=== PATIENT | female | born 1975 | race African-American/Black ===

== ENCOUNTER 2017-08-04 23:59 | Emergency (ER) | payer OTHER ==
[~2017-08-04] VITALS: Ht 149.9 cm; Wt 52.1 kg
[~2017-08-04 23:59] MED LIST: ALBUTEROL SULF8.5 GM IH; ASPIR-LOW81 MG PO; AZITHROMYCIN500 M1 PO; BENADRYL50 MG PO; BENZONATATE200 MG PO; BUTALB-APAP-CA1 EACH PO; CEFDINIR300 MG PO; CEFTIN500 MG PO; CELEXA; CELEXA20 MG PO; CIPRO500 MG PO; CITALOPRAM HBR20 MG PO; CYANOCOBALAM1000 MCG PO; DILAUDID2 MG PO; DOXYCYCLINE HY100 MG PO; FAMOTIDINE20 MG PO; FERROUS SULFAT325 MG PO; FETZIMA40 MG PO; FLEXERIL5 MG PO; FOLIC ACID1 MG PO; HYDROCODON-ACE1 EAC7 PO; IBUPROFEN800 MG PO; LEVAQUIN750 MG PO; MECLIZINE HCL25 MG PO; MEDROL DOSEPAK4 MG PO; MELOXICAM7.5 MG PO; METRONIDAZOLE500 MG PO; MOTRIN400 MG PO; MOTRIN800 MG PO; NAPROSYN500 MG PO; PRAVASTATIN SOD80 MG PO; PREDNISONE10 MG PO; PREDNISONE20 MG PO; PROAIR HFA8.5 GM IH; PROMETHAZINE HC25 M1 PO; ROBITUSSIN AC,T10 ML PO; SYMBICORT60 INHALAT IH; ULTRAM50 MG PO; WOMEN'S DAILY1 EAC1 PO; ZOFRAN4 MG PO; [UNRECOGNIZED DRUG - OTHER]; [UNRECOGNIZED DRUG - REMARK] PO
[2017-08-05] MEDS ORDERED: HYCODAN SYRUP480 ML PO (02:35)
[2017-08-05] MEDS ORDERED: VENTOLIN HFA18 GM IH (02:35)
[2017-08-05] MEDS ORDERED: PREDNISONE20 MG PO (02:35)
[2017-08-05 02:50] VITALS: BP 139/96
== END 2017-08-05 03:03 | disposition home or self-care (01) ==
LOC: EME 23:59
DX: J20.9 Acute bronchitis, unspecified (principal); J45.909 Unspecified asthma, uncomplicated; F17.200 Nicotine dependence, unspecified, uncomplicated; I10 Essential (primary) hypertension; F32.9 Major depressive disorder, single episode, unspecified; F41.9 Anxiety disorder, unspecified; Z86.73 Personal history of transient ischemic attack (TIA), and cerebral infarction without residual deficits
CPT/HCPCS: 71046; 94640; 99281; 99284; J7512

== ENCOUNTER 2018-03-11 23:30 | Inpatient (IN) | payer OTHER ==
[~2018-03-11] VITALS: Ht 149.9 cm; Wt 46.8 kg
[~2018-03-11 23:30] MED LIST changes: +HYCODAN SYRUP480 ML PO; +VENTOLIN HFA18 GM IH
[2018-03-12 01:50] LABS: ALBUMIN 4.3 g/dL (3.2-4.8); CHLORIDE 104 mEq/L (99-109); POTASSIUM 3.2 mEq/L (3.7-5.4); SODIUM 140 mEq/L (136-147)
[2018-03-12 01:53] LABS: GLUCOSE 114 mg/dL (70-99); TOTAL PROTEIN 7.9 g/dL (6.4-8.3)
[2018-03-12 01:55] LABS: TOTAL BILIRUBIN 1.2 mg/dL (0.0-1.0)
[2018-03-12 01:56] LABS: ALKALINE PHOSPHATASE 61 IU/L (3-129); SERUM ETHYL ALCOHOL < 10 mg/dL
[2018-03-12 01:57] LABS: CREATININE 0.8 mg/dL (0.6-1.3); GFR ESTIMATE (CALCULATED) > 59 mL/min/
[2018-03-12 01:58] LABS: AST (GOT) 72 IU/L (2-34); UREA NITROGEN (BUN) 18 mg/dL (9-23)
[2018-03-12 01:59] LABS: ALT (GPT) 36 IU/L (3-49)
[2018-03-12 02:00] LABS: LIPASE 12 U/L (1.0-51.0); TOTAL CK 2765 IU/L (1-294)
[2018-03-12 02:06] LABS: QUANTITATIVE HCG < 4.0 MIU/ML
[2018-03-12 02:07] LABS: CK-MB 16.9 ng/mL (0.0-4.9); CKMB RELATIVE INDEX 0.6 (0.0-3.9)
[2018-03-12 02:08] LABS: HEMOGLOBIN 10.4 G/DL (11.9-15.5); MCHC 32.5 G/DL (30.0-36.0); MCV 70.8 FL (83-99); PLATELET COUNT 199 K/uL (156-360); RBC DIS.WIDTH-CV 14.2 % (11.8-14.6); RBC DIS.WIDTH-SD 35.6 % (39-53); RED BLOOD COUNT 4.52 M/uL (3.80-5.20); WHITE BLOOD COUNT 13.2 K/uL (4.1-10.2)
[2018-03-12 02:27] LABS: CREATINE KINASE 2751 IU/L (1-294)
[2018-03-12 04:53] LABS: APPEARANCE CLEAR ((CLEAR)); BILIRUBIN NEGATIVE; BLOOD LARGE; COLOR YELLOW ((YELLOW)); GLUCOSE (STRIP) NEGATIVE; KETONES 20; LEUKOCYTES LARGE; NITRITE NEGATIVE; PROTEIN (STRIP) 30
[2018-03-12 04:54] LABS: SPECIFIC GRAVITY > 1.060 (1.000-1.030)
[2018-03-12 05:00] LABS: BACTERIA RARE /HPF; EPITHELIAL CELLS 1+ /HPF; MUCUS 1+ /LPF; UCUL ADDED? YES
[2018-03-12 05:04] LABS: AMPHETAMINE NEGATIVE (500 ng/mL); BARBITURATES NEGATIVE (200 ng/mL); BENZODIAZEPINES NEGATIVE (150 ng/mL); BUPRENORPHINE NEGATIVE (10 ng/mL); COCAINE PRESUMPTIVE POSITIVE (150 ng/mL); METHADONE NEGATIVE (200 ng/mL); METHAMPHETAMINE NEGATIVE (500 ng/mL); OPIATES (MORPHINE) NEGATIVE (100 ng/mL); OXYCODONE NEGATIVE (100 ng/mL); PHENCYCLIDINE NEGATIVE (25 ng/mL); PROPOXYPHENE NEGATIVE (300 ng/mL); THC CANNABINOIDS NEGATIVE (50 ng/mL); TRICYCLIC ANTIDEPRESSANTS NEGATIVE (300 ng/mL)
[2018-03-12 06:19] LABS: TROP-I INTERPRETATION NEGATIVE; TROPONIN-I < 0.01 ng/mL (0.0-0.30)
[2018-03-12 06:23] VITALS: BP 149/85
[2018-03-12 06:41] LABS: CREATINE KINASE 1616 IU/L (1-294)
[2018-03-12 07:49] VITALS: BP 137/86
[2018-03-12 11:58] VITALS: BP 137/88
[2018-03-12 12:08] LABS: ALBUMIN 3.6 G/DL (3.2-4.8); ALKALINE PHOSPHATASE 54 IU/L (3-129); ALT (GPT) 25 IU/L (3-49); AST (GOT) 48 IU/L (2-34); CHLORIDE 110 MEQ/L (99-109); CREATININE 0.8 MG/DL (0.6-1.3); DIRECT BILIRUBIN 0.3 mg/dL (0.0-0.3); GFR ESTIMATE (CALCULATED) > 59 mL/min/; GLUCOSE 96 mg/dL (70-99); POTASSIUM 3.5 MEQ/L (3.7-5.4); SODIUM 141 MEQ/L (136-147); TOTAL BILIRUBIN 1.1 MG/DL (0.0-1.0); TOTAL PROTEIN 6.1 G/DL (6.4-8.3); UREA NITROGEN (BUN) 12 mg/dL (9-23)
[2018-03-12 12:41] LABS: BASOPHIL (%) 0.6 % (0-1); BASOPHIL COUNT 0.1 K/uL (0-0.1); EOSINOPHIL (%) 2.7 % (0-5); EOSINOPHIL COUNT 0.3 K/uL (0-0.3); HEMATOCRIT 31.3 % (36.0-46.0); IMMATURE GRANULOCYTE (%) 0.2 % (0.0-0.7); LYMPHOCYTE COUNT 2.6 K/uL (1.0-2.8); MCH 23.3 PG (29.0-34.0); MCHC 31.9 G/DL (30.0-36.0); MCV 72.8 FL (83-99); MONOCYTE (%) 10.7 % (3-12); MONOCYTE COUNT 1.2 K/uL (0-0.8); NEUTROPHIL (%) 61.8 % (45-76); NEUTROPHIL COUNT 6.7 K/uL (1.8-6.4); PLATELET COUNT 183 K/uL (156-360); RBC DIS.WIDTH-CV 14.9 % (11.8-14.6); RBC DIS.WIDTH-SD 38.6 % (39-53); WHITE BLOOD COUNT 10.8 K/uL (4.1-10.2)
[2018-03-12 15:44] VITALS: BP 148/92
[2018-03-13 00:08] VITALS: BP 136/82
[2018-03-13 03:49] VITALS: BP 114/70
[2018-03-13 07:17] LABS: HEMATOCRIT 31.7 % (36.0-46.0); HEMOGLOBIN 9.9 G/DL (11.9-15.5); MCH 22.6 PG (29.0-34.0); MCHC 31.2 G/DL (30.0-36.0); MCV 72.4 FL (83-99); PLATELET COUNT 200 K/uL (156-360); RBC DIS.WIDTH-CV 14.7 % (11.8-14.6); RBC DIS.WIDTH-SD 38.5 % (39-53); RED BLOOD COUNT 4.38 M/uL (3.80-5.20); WHITE BLOOD COUNT 9.2 K/uL (4.1-10.2)
[2018-03-13 07:30] LABS: CHLORIDE 110 MEQ/L (99-109); CREATININE 0.7 MG/DL (0.6-1.3); GFR ESTIMATE (CALCULATED) > 59 mL/min/; GLUCOSE 91 mg/dL (70-99); POTASSIUM 3.7 MEQ/L (3.7-5.4); SODIUM 140 MEQ/L (136-147); UREA NITROGEN (BUN) 4 mg/dL (9-23)
[2018-03-13 07:31] LABS: TROP-I INTERPRETATION NEGATIVE; TROPONIN-I < 0.01 ng/mL (0.0-0.30)
[2018-03-13 08:08] VITALS: BP 136/81
[2018-03-13 09:46] LABS: CREATINE KINASE 591 IU/L (1-294)
[2018-03-13 11:31] VITALS: BP 143/96
[2018-03-13] MEDS ORDERED: PAROXETINE HCL20 MG PO (14:04)
[2018-03-13] MEDS ORDERED: PREDNISONE20 MG PO (14:04)
== END 2018-03-13 16:45 | disposition home or self-care (01) | DRG 558 ==
LOC: EME 23:30 → EDOF 03-12 04:28 → 5SOUTH 03-12 04:28 → ENRESERV 03-12 04:29 → 5SOUTH 03-12 05:27
PROVIDERS: Emergency Medicine; Physician Assistant; Student in an Organized Health Care Education/Training Program
DX: M62.82 Rhabdomyolysis (principal); F14.10 Cocaine abuse, uncomplicated; E87.6 Hypokalemia; D64.9 Anemia, unspecified; J03.90 Acute tonsillitis, unspecified; J04.0 Acute laryngitis; R13.10 Dysphagia, unspecified; F43.10 Post-traumatic stress disorder, unspecified; F32.9 Major depressive disorder, single episode, unspecified; M79.604 Pain in right leg; M79.605 Pain in left leg; R49.0 Dysphonia; F17.210 Nicotine dependence, cigarettes, uncomplicated
CPT/HCPCS: 70498; 71046; 80048; 80048 91; 80053; 80076; 81003; 82550; 82550 91; 82553; 83690; 84484; 84702; 84999; 85025; 85027; 87077; 87086; 87186; 87651 90; 99281; 99285; G0480; J1650; J7030; J7512